=== PATIENT | male | born 2000 ===

== ENCOUNTER 2024-03-06 15:01 | Emergency (ER) | payer OTHER, SELFPAY ==
--- NOTE | ~2024-03-06 | CT_ITS ---
EXAMINATION: CT abdomen pelvis wo con DATE: 03/06/2024 16:44 INDICATION: Left flank pain TECHNIQUE: Computed tomography (CT) of the abdomen and pelvis was performed without intravenous contr ast. Automated exposure control and iterative reconstruction technique were employed. The dose-length product was 1030.51 mGy-cm. COMPARISON: None FINDINGS: Lung bases are clear. Heart size is normal. No pericardial or pleural effusion. Diffuse hepatic steat osis focal sparing along the gallbladder fossa. Gallbladder, spleen, pancreas, bilateral adrenal glan ds and kidneys are normal. No urolithiasis or hydronephrosis. The bowels including the appendix are n ormal. Bladder is normal. No free intraperitoneal gas or fluid. No pathologically enlarged abdominal or pelvic lymphadenopathy. A couple phleboliths in the pelvis. Tiny fat-containing umbilical hernia. Mild thoracolumbar levocurvature. A few scattered small bone islands in the pelvis and left femoral h ead. IMPRESSION: 1. No urolithiasis or acute intra-abdominal/pelvic process. Reviewed, dictated and finalized at location A.
[2024-03-06 15:03] VITALS: BP 137/88; PULSE 93; RESP 18; TEMP 36.8; O2SAT 96
--- NOTE | 2024-03-06 15:15 | ED_ITS ---
HPI - GI Bleed General Chief complaint: Abdominal Pain Stated complaint: throwing up w/ left side ab pain Source: patient Mode of arrival: ambulatory Limitations: no limitations History of Present Illness HPI Narrative: 23-year-old male, alcoholic presents to the ED with a 2 day history of -- hematemesis. He vomited 3 small coffee cup of red liquid with Blood clots. no melanotic stool. dark colored stool -- abdominal pain predominantly in left lateral abdomen/left flank. pain is intermittent. No radiation of the pain. -- Subjective fever MD complaint: blood streaked emesis and blood streaked stool Onset (ago): day(s) ( 2 days) Pain Consistency: intermittent Severity: severe Relieving factors: none Exacerbating factors: none Associated symptoms: denies other symptoms Related Data Allergies Allergy/AdvReac Type Severity Reaction Status Date / Time No Known Allergies Allergy Mild Unverified 08/13/04 06:28 Review of Systems Review of Systems: All systems reviewed & are unremarkable except as noted in HPI and below Constitutional: Constitutional: Reports as per HPI and Reports no additional constitutional complaints Eyes: Eyes: Reports as per HPI and Reports no additional eye complaints ENT: Reports system reviewed and no additional complaints, except as documented and Reports as per HPI Cardiovascular: Cardiovascular: Reports as per HPI and Reports no additional cardiovascular complaints Respiratory: Respiratory: Reports as per HPI and Reports no additional respiratory complaints Gastrointestinal: Gastrointestinal: Reports as per HPI, Reports no additional gastrointestinal complaints and Reports abdominal pain Comments: left flank pain/ left costovertebral angle pain Genitourinary: Genitourinary: Reports no additional male genitourinary complaints Musculoskeletal: Musculoskeletal: Reports no additional musculoskeletal complaints and Reports as per HPI Integumentary/Breasts: Skin/Breast: Reports system reviewed and no additional complaints, except as docu and Reports as per HPI Neurologic: Reports system reviewed and no additional complaints, except as documented and Reports as per HPI Psychiatric: Psychiatric: Reports no additional psychiatric complaints and Reports as per HPI Endocrine: Endocrine: Reports no additional endocrine complaints and Reports as per HPI Hematologic/Lymphatic: Hematologic/Lymphatic: Reports no additional hematologic/lymphatic complaints and Reports as per HPI Allergic/Immunologic: Allergic/Immunologic: Reports no additional allergic/immunologic complaints and Reports as per HPI Exam Narrative: vitals are stable Const: General: ill appearing Orientation/consciousness: patient oriented x3 Limitations: no limitations HENMT: Head: normal to inspection Ears: external ears normal Face/Nose/Sinus: Normal external nose present Face and sinus: normal facial exam Mouth: Yes Normal oral and palatal mucosa present Throat: posterior oropharynx normal Eyes: Conjunctivae: conjunctivae normal Pupils: Equal, round and reactive pupils present Direct Ophthalmoscopy: no photophobia Neck: Neck: normal visual inspection, no lymphadenopathy and no meningeal signs Chest: Chest palpation & inspection: normal inspection of the chest Resp: Effort & Inspection: normal respiratory effort Auscultation: clear to auscultation bilaterally Cardio: Rate: regular rate Rhythm: regular rhythm GI: GI Palp: Yes Soft to palpation Rectal Exam: normal sphincter tone Other: tenderness in the epigastric region/left flank/ left costovertebral angle no rigidity/ rebound. : General: Yes CVA tenderness Back/Spine/Pelvis: Back: CVA tenderness Skin: General skin exam: normal color Rashes: no rashes Wounds: no wounds Neuro: General: patient oriented x3, moves all extremities, no meningeal signs, no focal motor deficits and CN's II-XI intact bilaterally Cranial nerves: Yes Nystagmus not present Speech: normal speech Gait exam (Neuro): Normal gait present Extrem: General: normal to inspection, no clubbing, cyanosis or edema and no pedal edema Psych: Mental Status: mental status grossly normal Affect: normal affect Course Course Emergency Course: Hematemesis-- stool guaiac is negative. H&H is stable. alcoholism/ hepatitis left flank pain-- Urine is negative. CT of the abdomen and pelvis did not show any acute intra-abdominal pathology or kidney stones. Vital Signs Vital signs: Vital Signs Temperature 36.8 C 03/06/24 15:03 Pulse Rate 93 03/06/24 15:03 Respiratory Rate 18 03/06/24 15:03 Blood Pressure 137/88 03/06/24 15:03 Pulse Oximetry 96 03/06/24 15:03 Oxygen Delivery Room Air 03/06/24 15:03 Temperature 36.8 C 03/06/24 15:03 Pulse Rate 93 03/06/24 15:03 Respiratory Rate 18 03/06/24 15:03 Blood Pressure 137/88 03/06/24 15:03 Pulse Oximetry 96 03/06/24 15:03 Oxygen Delivery Room Air 03/06/24 15:03 MDM - GI Bleed MDM Narrative Medical decision making narrative: Gastritis abdominal pain Lab Data Attestation: I reviewed the patient's lab results. 03/06/24 16:00 03/06/24 16:00 Labs: Lab Results 03/06/24 Range/Units 16:00 WBC 9.1 (4.8-10.8) K/mm3 RBC 5.31 (4.70-6.10) M/mm3 Hgb 16.9 (14.0-18.0) g/dL Hct 48.0 (40.0-54.0) % MCV 90.4 (78.0-102.0) fL MCH 31.8 H (27.0-31.0) pg MCHC 35.2 (32-36) g/dL RDW 12.2 (11.6-14.4) % Plt Count 196 (150-420) K/mm3 MPV 10.0 (8.7-11.0) fl Immature Gran % (Auto) Not Reportable Neut % (Auto) Not Reportable Lymph % (Auto) Not Reportable Patrick % (Auto) Not Reportable Eos % (Auto) Not Reportable Baso % (Auto) Not Reportable Lymph # (Auto) Not Reportable Patrick # (Auto) Not Reportable Eos # (Auto) Not Reportable Baso # (Auto) Not Reportable Abs Immat Gran (auto) Not Reportable Absolute Neuts (auto) Not Reportable Absolute Nucleated RBC Not Reportable Total Counted 100 Neutrophils % (Manual) 52 (46-73) % Band Neutrophils % 2 (0-6) % Lymphocytes % (Manual) 25 (18-44) % Monocytes % (Manual) 21 H (3-9) % Eosinophils % (Manual) 0 L (1-6) % Basophils % (Manual) 0 (0-1) % Nucleated RBC % Not Reportable Abs Neuts (Manual) 4.91 (1.3-6.7) K/mm3 Abs Lymphs (Manual) 2.27 (1.1-4.5) K/mm3 Abs Monocytes (Manual) 1.91 H (0.1-0.90) K/mm3 Absolute Eos (Manual) 0.00 L (0.02-0.50) K/mm3 Abs Basophils (Manual) 0.00 (0-0.1) K/mm3 Platelet Estimate Adequate (Adequate) Schistocytes Not Reportable Sodium 141 (136-145) mmol/L Potassium 4.4 (3.5-5.1) mmol/L Chloride 103 (98-108) mmol/L Carbon Dioxide 28 (21-32) mmol/L Anion Gap 10 (4-12) mmol/L BUN 9 (7-18) mg/dL Creatinine 1.10 (0.70-1.30) mg/dL Estim Creat Clear Calc 122 ml/min Estimated GFR > 60 (59 - ) Glucose 98 (70-99) mg/dL Calculated Osmolality 290 (285-295) mOsm/kg Lactic Acid 0.8 (0.4-2.0) mmol/L Calcium 9.3 (8.5-10.1) mg/dL Phosphorus 3.3 (2.6-4.7) mg/dL Magnesium 2.3 (1.8-2.4) mg/dL Total Bilirubin 0.5 (0.00-1.00) mg/dL Direct Bilirubin 0.1 (0-0.2) mg/dL AST 70 H (15-37) U/L ALT 157 H (16-63) U/L Alkaline Phosphatase 102 (46-116) U/L Total Protein 8.0 (6.4-8.2) g/dL Albumin 4.0 (3.4-5.0) g/dL Lipase 28 (16-77) U/L Urine Color Light yellow (Yellow) Urine Appearance Clear (Clear) Urine pH 6.0 (5.0-8.0) Ur Specific [place] 1.025 H (1.010-1.020) Urine Protein Negative (Negative) Urine Glucose (UA) Negative (Negative) Urine Ketones Negative (Negative) Ur Blood (Man) Negative (Negative) Urine Nitrate Negative (Negative) Urine Bilirubin Negative (Negative) Urine Urobilinogen 0.2 (0.2-1.0) mg/dL Leukocyte Esterase Rfl Negative (Negative) MICHEAL/UL Stool Occult Blood Negative (Negative) Discharge Plan Discharge Clinical Impression: Alcoholism Gastritis Qualifiers: Gastritis type: unspecified gastritis Chronicity: unspecified Gastritis bleeding: without bleeding Qualified Code(s): K29.70 - Gastritis, unspecified, without bleeding Patient Disposition: Home, Self-Care Condition: Stable Instructions: Antibiotic Form, Gastritis (ED), Alcohol Dependence (ED), Alcoholic Hepatitis (ED) Patient Language: Croatian Prescriptions: New pantoprazole [Protonix] [address] for susp in packet 40 mg PO DAILY Qty: 30 0RF thiamine HCl (vitamin B1) 100 mg tablet 100 mg PO DAILY Qty: 30 0RF Follow-up/Referrals: UNKNOWN,DOCTOR [Non-Staff] - Time of Disposition: 17:43
[2024-03-06 15:53] LABS: Occult Blood Negative (Negative)
[2024-03-06 16:03] LABS: Add Urine Microscopic? NO; Appearance Urine Clear (Clear); Bilirubin Urine Negative (Negative); Blood Urine Negative (Negative); Color Urine Light Yellow (Yellow); Glucose Urine UA Negative (Negative); Hemoglobin 16.9 g/dL (14.0-18.0); Ketones Urine Negative (Negative); Leukocyte Esterase Ur Negative LEU/UL (Negative); Mean Corpuscular HGB Conc 35.2 g/dL (32-36); Mean Corpuscular Hemoglobin 31.8 pg (27.0-31.0); Mean Corpuscular Volume 90.4 fL (78.0-102.0); Nitrate Urine Negative (Negative); Platelet Count Result 196 K/mm3 (150-420); Protein Urine Negative (Negative); Red Blood Count 5.31 M/mm3 (4.70-6.10); Red Cell Distribution Width 12.2 % (11.6-14.4); Specific Grav Ur 1.025 (1.010-1.020); Urobilinogen Urine 0.2 mg/dL (0.2-1.0); White Blood Count 9.1 K/mm3 (4.8-10.8)
[2024-03-06] MEDS: LACTATED RINGERS 1,000 ML 999 ML IV CONT (16:07)
[2024-03-06] MEDS: HYDROmorphone HCL INJ (*CRX) 2 MG/ML VIAL 1 MG IV PUSH (16:08)
[2024-03-06] MEDS: ONDANSETRON INJ 4 MG/2 ML VIAL IV PUSH (16:08)
[2024-03-06 16:15] LABS: Lipase 28 U/L (16-77); Magnesium 2.3 mg/dL (1.8-2.4); Phosphorus 3.3 mg/dL (2.6-4.7)
[2024-03-06 16:20] LABS: Band Neutrophils Percent 2 % (0-6); Basophils Percent Manual 0 % (0-1); Eosinophils Percent Manual 0 % (1-6); Lactic Acid Reflex 0.8 mmol/L (0.4-2.0); Lymphocytes Absolute Manual 2.27 K/mm3 (1.1-4.5); Lymphocytes Percent Manual 25 % (18-44); Monocytes Absolute Manual 1.91 K/mm3 (0.1-0.90); Monocytes Percent Manual 21 % (3-9); Neutrophils Absolute Manual 4.91 K/mm3 (1.3-6.7); Neutrophils Percent Manual 52 % (46-73); Platelet Estimate Adequate (Adequate); Total Cells Counted 100
[2024-03-06 16:26] LABS: Alanine Aminotransferase 157 U/L (16-63); Alkaline Phosphatase 102 U/L (46-116); Anion Gap 10 mmol/L (4-12); Aspartate Amino Transferase 70 U/L (15-37); Bilirubin Direct 0.1 mg/dL (0-0.2); Bilirubin,Total 0.5 mg/dL (0.00-1.00); Blood Urea Nitrogen 9 mg/dL (7-18); Calcium 9.3 mg/dL (8.5-10.1); Carbon Dioxide 28 mmol/L (21-32); Chloride 103 mmol/L (98-108); Estimated CRCL calculation 122 ml/min; Estimated Glomerular Filt Rate > 60; Glucose 98 mg/dL (70-99); Osmolality Calculated 290 mOsm/kg (285-295); Potassium 4.4 mmol/L (3.5-5.1); Sodium 141 mmol/L (136-145)
[2024-03-06 17:51] VITALS: BP 151/93; PULSE 95; RESP 20; TEMP 37.1; O2SAT 97
== END 2024-03-06 17:56 | disposition home or self-care (01) ==
PROVIDERS: Emergency Provider Internal Medicine Critical Care Medicine; PCP Physician Assistant
DX: F10.20 Alcohol dependence, uncomplicated (principal); K29.70 Gastritis, unspecified, without bleeding
CPT/HCPCS: 36415; 74176; 80048; 80076; 81003; 82272; 83605; 83690; 83735; 84100; 85025; 96361; 96374; 96375; 99284; J1171; J2405; J7120